=== PATIENT | female | born 1945 | race Caucasian/White ===

== ENCOUNTER → 2017-09-10 | Outpatient (CLI) | payer MEDICARE, OTHER ==
[~2017-09-10] MED LIST: ADVA250A INH; ALBU6.7H INH; ASPI81CH3 PO; ASPI81TA23 PO; DICL75 PO; GLIM2TAB PO; GLIP5 PO; HYDR-2768 PO; HYDR25TA5 PO; METF500 PO; METF500T4 PO; OXYB5TAB PO; POTA-163 PO; ROSU1TAB8 PO; ROSU20 PO
[2017-09-10 09:18] LABS: AUTOMATED NEUTROPHIL # 3.4 TH/MM3 (1.8-7.7); BASOPHIL % 0.7 % (0.0-2.0); EOSINOPHIL # 0.2 TH/MM3 (0-0.4); EOSINOPHIL % 4.4 % (0.0-4.0); HEMATOCRIT 35.9 % (35.0-46.0); HEMOGLOBIN 11.9 GM/DL (11.6-15.3); LYMPH % 26.9 % (9.0-44.0); LYMPHOCYTE # 1.5 TH/MM3 (1.0-4.8); MEAN CELL VOLUME 87.4 FL (80.0-100.0); MEAN CORPUSCULAR HEMOGLOBIN 28.9 PG (27.0-34.0); MEAN PLATELET VOLUME 6.2 FL (7.0-11.0); MONO % 7.6 % (0.0-8.0); MONOCYTE # 0.4 TH/MM3 (0-0.9); NEUT % 60.4 % (16.0-70.0); PLATELET COUNT 283 TH/MM3 (150-450); RED BLOOD COUNT 4.11 MIL/MM3 (4.00-5.30); RED CELL DISTRIBUTION WIDTH 14.7 % (11.6-17.2); WHITE BLOOD COUNT 5.6 TH/MM3 (4.0-11.0)
[2017-09-10 09:25] LABS: PROTHROMBIN TIME - PATIENT 10.5 SEC (9.8-11.6)
[2017-09-10 09:48] LABS: BACTERIA, URINE RARE /hpf; BILIRUBIN, URINE NEG (NEG); BLOOD, URINE NEG (NEG); GLUCOSE,URINE NEG (NEG); HYALINE CAST, URINE 3 /lpf (RARE); KETONE, URINE NEG (NEG); MUCUS URINE FEW /lpf (OCC); NITRITE,URINE NEG (NEG); SQUAMOUS EPITHELIAL CELL URINE 1 /hpf (0-5); URINE COLOR YELLOW (YELLW/STRAW); URINE LEUKOCYTE ESTERASE NEG (NEG)
--- NOTE | 2017-09-10 10:29 | RADRPT ---
EXAM DATE/TIME: 09/10/2017 09:53 [facility] COMPARISON: No previous studies available for comparison. INDICATIONS : Evaluate for pneumothorax, pneumonia, or other communicable disease. Pre-op knee surgery. MEDICAL HISTORY : None. SURGICAL HISTORY : None. ENCOUNTER: Initial ACUITY: 1 day PAIN SCORE: 0/10 LOCATION: Bilateral chest FINDINGS: PA and lateral views of the chest demonstrate the lungs to be symmetrically aerated without evidence of mass, infiltrate or effusion. The cardiomediastinal contours are unremarkable. Osseous structure s are intact. CONCLUSION: 1. No acute cardiopulmonary disease. Marty Cantu MD on September 10, 2017 at 10:21 Board Certified Radiologist. This report was verified electronically.
[2017-09-10 10:41] LABS: BICARBONATE 28.9 MEQ/L (21.0-32.0); CALCIUM 9.9 MG/DL (8.5-10.1); CREATININE 0.97 MG/DL (0.50-1.00)
--- NOTE | 2017-09-10 19:43 | EKG ---
Date Performed: 09/10/2017 Time Performed: 08:47:22 PTAGE: 71 years EKG: Sinus rhythm . Anterior T wave changes are nonspecific Borderline ECG PREVIOUS TRACING : 07/12/2015 11.02 Since previous tracing, no significant change noted DOCTOR: Josefina Lazar Interpretating Date/Time 09/10/2017 19:41:02
== END ==
LOC: CPRE 08:23
PROVIDERS: ATTEND Orthopaedic Surgery
DX: Z01.812 Encounter for preprocedural laboratory examination (principal); Z01.811 Encounter for preprocedural respiratory examination; Z01.810 Encounter for preprocedural cardiovascular examination; M17.12 Unilateral primary osteoarthritis, left knee; B95.2 Enterococcus as the cause of diseases classified elsewhere; R94.31 Abnormal electrocardiogram [ECG] [EKG]
CPT/HCPCS: 36415; 71046; 80048; 81001; 85025; 85610; 87077; 87086; 87186; 93005

== ENCOUNTER 2017-09-26 06:26 | Inpatient (IN) | payer MEDICARE, OTHER ==
--- NOTE | 2017-09-13 12:17 | MH ---
cc: JATIN STOLL DATE OF ADMISSION: 09/26/2017 ADMISSION DIAGNOSIS Osteoarthritis left knee, varus deformity left knee, pain left knee. HISTORY OF PRESENT ILLNESS The patient is a 71-year-old white female who has had a 2-year history of pain involving her left knee. She had experienced the onset of her symptoms initially in April of 2015, unrelated to injury or unusual activity. She had conformed to conservative management at that time but later underwent an MRI scan evaluation and subsequently diagnosed as having a medial meniscus tear of her left knee with associated chondromalacia and a knee effusion associated with a popliteal cyst. In July of 2015 the patient underwent arthroscopic surgery for which she was noted to have tolerated her operative procedure well and had an uneventful recovery thereafter. She was able to resume routine activities and was doing reasonably well until May of this past year when she fell while walking along a sidewalk, sustaining blunt trauma to the anterior aspect of her left knee. She was able to arise and ambulate thereafter and did not seek any immediate evaluation or treatment while conforming to modified activities which included ice application and taking [id number] medication for pain relief. Because of lingering symptoms she later underwent evaluation in the office in July of this past year and at that time her x-ray studies revealed obvious degenerative changes throughout the medial compartment with near [id number] apposition associated with a varus deformity of at least 5 degrees magnitude. Findings and treatment options were reviewed with the patient at that time. The pros and cons of continuing with conservative management versus operative intervention that would involve a total knee arthroplasty were outlined. Emphasis was made regarding the fact that the decision to proceed with surgery would be left entirely to the patient's discretion. The patient initially elected to continue with conservative management while trying to conform to exercise activities that she had previously been instructed following previous rehabilitation intervention. She was also taking diclofenac 75 mg for pain relief. Unfortunately, her symptoms persisted and she returned to the office in further disposition expressing her desire to proceed with a more definitive course of treatment. The involvement of total knee arthroplasty was outlined, with the patient indicating her desire to proceed accordingly given the progressive nature of her pain. In compliance with her wishes she is currently being admitted in order that the above be accomplished. PAST MEDICAL HISTORY/HOSPITALIZATIONS/SURGERIES 1. Arthroscopic surgery as described. 2. Abdominal hysterectomy. 3. Bilateral carpal tunnel release. 4. Three-level anterior cervical fusion. 5. Surgical treatment of a right ankle fracture with later removal of hardware. 6. Tonsillectomy. 7. Laparoscopic cholecystectomy. 8. The patient has also been hospitalized for medical management of anxiety. CURRENT MEDICAL ILLNESS 1. Diabetes. 2. Elevated cholesterol. 3. Hypertension. MEDICATIONS Current medications: 1. Glimepiride 2 mg at breakfast time. 2. Metformin 500 mg twice daily. The patient also adheres to a low-carbohydrate diet for her diabetes. 3. Oxybutynin 5 mg daily. 4. Rosuvastatin 20 mg daily. 5. Potassium chloride 20 mEq daily. 6. Hydrochlorothiazide 25 mg daily. 7. 81 mg aspirin tablet daily. ALLERGIES The patient describes a drug allergy to DEMEROL WHICH HAS BEEN ASSOCIATED WITH HALLUCINATIONS. Codeine has been well tolerated. REVIEW OF SYSTEMS She wears glasses. No headache or syncope. There is a history of seizure during childhood. No lingering problems thereafter. Auditory acuity is intact. No tinnitus. No bleeding gums or dysphagia. She does wear complete dentures. No sinus congestion or epistaxis. Auditory acuity intact. No tinnitus. No angina or heart disease. She is medically managed for hypertension. Her appetite is good. Bowel movements regular. No hepatitis, ulcers or hemorrhoids. She is status post cholecystectomy. No urinary tract infections in the distant past but apparently has had some issues recently. No kidney stones. History of fracture of the right ankle as described. No psychiatric illness. Her remaining review of systems is unremarkable and noncontributory. FAMILY HISTORY She had been 53 years. Her at 72 years of age with a history of prostate cancer as well as having a history of PTSD and heart disease. She has three daughters all described as being in good health. Her family history is positive for hypertension, diabetes, congestive heart failure, colon cancer and lung disease. 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 She completed a high school education. She denies active use of tobacco and ethanol. PHYSICAL EXAMINATION Height 5 feet 4 inches, weight 208 pounds. GENERAL: An alert, oriented and responsive 71-year-old white female who sits quietly upon the examination table with no apparent distress. HEENT: Pupils are equally round and reactive to light. Extraocular movements full. Sclerae clear. External nares clear. External auditory canals clear. Edentulous. Mucous membranes pink and moist. Pharynx clear. NECK: Supple. Active range of motion with no associated pain. Carotid pulse palpable bilaterally. Trachea midline. Thyroid without enlargement. LUNGS: Clear to auscultation and percussion. No CVA tenderness. No discomfort throughout the dorsal lumbar spine. HEART: Regular rhythm. No murmur or gallop. ABDOMEN: Abdomen is soft, nontender. Bowel sounds present. PELVIC: Per primary care physician. EXTREMITIES: Left knee: There is a mild fullness about the left knee consistent with redundancy of soft tissue, slight medial joint line tenderness without palpable deformity. Apprehension and compression sign negative. Limited mobility in the 110 degree range of motion with discomfort at the extreme of flexion. No associated crepitation. No collateral ligamentous laxity. Carlton test and drawer sign negative. Pivot shift and Zoe sign positive for medial compartment pain. Straight-leg raising unremarkable at 80 degrees. Satisfactory mobility of the left hip with no associated pain. Independent gait. NEUROLOGIC: Cranial nerves II-XII grossly intact. IMPRESSION Osteoarthritis of the left knee, varus deformity left knee, pain left knee. PLAN Left total knee arthroplasty. The nature of the planned surgical procedure, the potential complications and risks associated, the expectations of surgery and the consent form were thoroughly reviewed with the patient prior to her admission to the hospital. Ebony has indicated her full understanding regarding all of the above and given consent to proceed with treatment as outlined. Medical evaluation and clearance for surgery will be completed by her primary care physician, Dr. Sanches. Jtain Stoll MD NBS/TLL /11:37 AM /11:51 AM
[~2017-09-26] VITALS: Ht 162.6 cm; Wt 94.6 kg
[~2017-09-26 06:26] MED LIST changes: -ALBU6.7H INH; -ASPI81CH3 PO; -DICL75 PO; -GLIP5 PO; -HYDR-2768 PO; -METF500 PO; -ROSU20 PO
[2017-09-26] MEDS ORDERED: POVIDONE IODINE 7.5% SCRUB 118 ML BOTTLE TOPICAL SCH (07:00)
[2017-09-26] MEDS ORDERED: CHLORHEXIDINE GLUCONATE 2 % 1 PACK (2 CLOTHS) TOPICAL PRN (07:00)
[2017-09-26] MEDS ORDERED: SODIUM CHLORID 0.9% 500 ML IV PRN (07:00)
[2017-09-26] MEDS ORDERED: POVIDONE IODINE 5% (ANTISEPSIS KIT) 4 APPLICATIONS EACH NARE PRN (07:00)
[2017-09-26] MEDS ORDERED: LACTATED RINGER'S 1000 ML IV PRN (07:00)
[2017-09-26] MEDS ORDERED: METOPROLOL TARTRATE 25 MG TAB PO PRN (07:00)
[2017-09-26] MEDS ORDERED: ceFAZolin 2 GM PREMIX 50 ML IV SCH (07:00)
[2017-09-26] MEDS ORDERED: ceFAZolin INJ 1,000 MG VIAL ONE (07:58)
[2017-09-26] MEDS ORDERED: MIDAZOLAM HCL 2 MG/2 ML VIAL ONE (08:54)
[2017-09-26] MEDS ORDERED: ROPIVACAINE 0.5% PF INJ 30 ML VIAL ONE (08:55)
[2017-09-26] MEDS ORDERED: LIDOCAINE HCL 1% PF 5 ML AMPULE ONE (08:55)
[2017-09-26] MEDS ORDERED: ACETAMINOPHEN 1000 MG/100 ML 100 ML IV ONE (09:50)
[2017-09-26] MEDS ORDERED: FAMOTIDINE 20 MG/2 ML VIAL ONE (09:50)
[2017-09-26] MEDS: TRANEXAMIC ACID 1 GM PRIOR TO PROCEDURE IV SCH ×4 (09:56→13:15)
[2017-09-26] MEDS ORDERED: TRANEXAMIC ACID 1 GM POST-OP IV SCH ×2 (10:00)
[2017-09-26] MEDS ORDERED: EXPAREL PERI-ARTICULAR INJECTION (TOTAL VOL. 60 ML) P-ARTICULR SCH ×2 (10:00)
[2017-09-26] MEDS ORDERED: LIDOCAINE HCL 1% PF 5 ML SYRINGE OTHER ONE (12:00)
[2017-09-26] MEDS ORDERED: ONDANSETRON HCL 4 MG/2 ML VIAL IV ONE (12:00)
[2017-09-26] MEDS ORDERED: ROCURONIUM INJ 50 MG/5 ML SYRINGE IV PUSH ONE (12:00)
[2017-09-26] MEDS ORDERED: PROPOFOL 200 MG/20 ML AMP IV ONE (12:00)
[2017-09-26] MEDS ORDERED: LACTATED RINGER'S 1000 ML INJ 1,000 ML IV ONE (12:00)
[2017-09-26] MEDS ORDERED: DEXAMETHASONE SOD PHOS 4 MG/ML VIAL IV ONE (12:00)
[2017-09-26] MEDS ORDERED: NEOSTIGMINE 5 MG/5 ML SYRINGE IV PUSH ONE (12:00)
[2017-09-26] MEDS ORDERED: GLYCOPYRROLATE 1 MG/5 ML SYRINGE IV PUSH ONE (12:00)
[2017-09-26] MEDS ORDERED: DO NOT ADM ANY ANTICOAGULANT DRUGS PRN (12:14)
[2017-09-26] MEDS ORDERED: *morphine SULFATE 10 MG/ML PERIprocedure ONLY ONE ×3 (12:26→12:53)
[2017-09-26] MEDS ORDERED: MORPHINE SULFATE 4 MG/ML INJ ONE (12:26)
[2017-09-26] MEDS ORDERED: MISCELLANEOUS PHARMACY INFORMATION XX ONE (12:30)
[2017-09-26] MEDS ORDERED: Post-op Orders (for Pharmacy) XX ONE (12:30)
[2017-09-26] MEDS ORDERED: NALOXONE HCL 0.4 MG/ML AMP IV PUSH PRN (12:30)
[2017-09-26] MEDS ORDERED: ACETAMINOPHEN/HYDROcodone 325 MG/5 MG TAB PO PRN (12:30)
[2017-09-26] MEDS ORDERED: ONDANSETRON HCL 4 MG/2 ML VIAL IVP PRN (12:30)
[2017-09-26] MEDS ORDERED: TRANEXAMIC ACID INJ 1,000 MG in SODIUM CHLORIDE 0.9% INJ 100 ML IV SCH (12:30)
[2017-09-26] MEDS ORDERED: ACETAMINOPHEN 325 MG TAB PO PRN (12:30)
[2017-09-26] MEDS ORDERED: ZOLPIDEM TARTRATE 5 MG TAB PO PRN (12:30)
[2017-09-26] MEDS ORDERED: diphenhydrAMINE HCL 50 MG/ML VIAL IV PUSH PRN (12:30)
[2017-09-26] MEDS: DEXT 5%-NACL 0.45% 1000 ML INJ 1,000 ML IV SCH ×2 (13:00→21:40)
[2017-09-26] MEDS ORDERED: PCA - TOTAL MG DILAUDID DELIVERED PER SHIFT SCH (14:00)
--- NOTE | 2017-09-26 14:16 | RADRPT ---
EXAM DATE/TIME: 09/26/2017 12:53 [facility] COMPARISON: No previous studies available for comparison. INDICATIONS : Post op left knee surgery MEDICAL HISTORY : None. SURGICAL HISTORY : None. ENCOUNTER: Initial ACUITY: 1 day PAIN SCORE: 10/10 LOCATION: Left knee FINDINGS: AP and lateral views of the knee following arthroplasty reveals a prosthesis in anatomic alignment. F racture is not appreciated. Surgical drain is evident CONCLUSION: Status post total knee arthroplasty. Ramon Saleem MD FACR Board Certified Radiologist. This report was verified electronically.
[2017-09-26 16:00] VITALS: BP 117/74; PULSE 75; RESP 18; TEMP 96.4; O2SAT 95
--- NOTE | 2017-09-26 16:57 | PD.CONS ---
[facility] By Dr[facility] service Reason for Consult Medical management Primary Care Physician Javier Sanches DO Diagnoses: History of Present Illness Patient is a very pleasant 71-year-old female with known history of hypertension , diabetes type 2, hyperlipidemia who is admitted under orthopedic services today and underwent left total knee arthroplasty. Patient apparently has been having increasing pain on the left knee worsening over the past 6 months which prompted this admission. Patient states very good hypoglycemic awareness. States checks her blood sugars at home ranging from 120s to 160s. Lately has been using a walker to help with ambulation. Review of Systems Constitutional: DENIES: Diaphoretic episodes, Fatigue, Fever, Weight gain, Weight loss, Chills, Dizziness, Change in appetite, Night Sweats Endocrine: DENIES: Abnorml menstrual pattern, Heat/cold intolerance, Polydipsia , Polyuria, Polyphagia Eyes: DENIES: Blurred vision, Diplopia, Eye inflammation, Eye pain, Vision loss , Photosensitivity, Double Vision Ears, nose, mouth, throat: DENIES: Tinnitus, Hearing loss, Vertigo, Nasal discharge, Oral lesions, Throat pain, Hoarseness, Ear Pain, Running Nose, Epistaxis, Sinus Pain, Toothache, Odynophagia Respiratory: DENIES: Apneas, Cough, Snoring, Wheezing, Hemoptysis, Sputum production, Shortness of breath Cardiovascular: DENIES: Chest pain, Palpitations, Syncope, Dyspnea on Exertion , PND, Lower Extremity Edema, Orthopnea, Claudication Gastrointestinal: DENIES: Abdominal pain, Black stools, Bloody stools, Constipation, Diarrhea, Nausea, Vomiting, Difficulty Swallowing, Anorexia Genitourinary: DENIES: Abnormal vaginal bleeding, Dysmenorrhea, Dyspareunia, Sexual dysfunction, Urinary frequency, Urinary incontinence, Urgency, Hematuria , Dysuria, Nocturia, Vaginal discharge Musculoskeletal: COMPLAINS OF: Joint pain Integumentary: DENIES: Abnormal pigmentation, Pruritus, Rash, Nail changes, Breast masses, Breast skin changes, Nipple discharge Hematologic/lymphatic: DENIES: Bruising, Lymphadenopathy Immunologic/allergic: DENIES: Eczema, Urticaria Neurologic: DENIES: Abnormal gait, Headache, Localized weakness, Paresthesias, Seizures, Speech Problems, Tremor, Poor Balance Psychiatric: DENIES: Anxiety, Confusion, Mood changes, Depression, Hallucinations, Agitation, Suicidal Ideation, Homicidal Ideation, Delusions Past Family Social History Allergies: Coded Allergies: meperidine (Verified Allergy, Severe, Hallucinations, 09/26/17) Past Medical History Hypertension Hyperlipidemia Diabetes mellitus type 2 Overactive bladder Hyperreactive airway disease Reported Medications As outpatient Pravastatin Aspirin Potassium chloride Hydrochlorothiazide 25 mg daily Advair Metformin 500 twice a The omeprazole 20 mg daily Oxybutynin ER 24 once a day Currently in-house Xarelto Cefazolin Narco Colace Ambien Family History Noncontributory Social History Denies smoking alcohol or substance abuse Physical Exam Vital Signs Vital Signs Date Time Temp Pulse Resp B/P (MAP) Pulse Ox O2 Delivery O2 Flow Rate FiO2 09/26/17 12:18 97.8 94 20 133/71 (91) 97 Nasal Cannula 2 09/26/17 07:34 98.5 72 20 121/69 (86) 95 Physical Exam GENERAL: Awake alert oriented 3 in no apparent distress. SKIN: No rashes, ecchymoses or lesions. Cool and dry. HEAD: Atraumatic. Normocephalic. No temporal or scalp tenderness. EYES: Pupils equal round and reactive. Extraocular motions intact. No scleral icterus. No injection or drainage. ENT: Nose without bleeding, purulent drainage or septal hematoma. Throat without erythema, tonsillar hypertrophy or exudate. Uvula midline. Airway patent. NECK:No JVD or lymphadenopathy. Supple, nontender, no meningeal signs. CARDIOVASCULAR: Regular rate and rhythm without murmurs, gallops, or rubs. RESPIRATORY: Clear to auscultation. Breath sounds equal bilaterally. No wheezes , rales, or rhonchi. GASTROINTESTINAL: Abdomen soft, non-tender, nondistended.. No guarding. MUSCULOSKELETAL: Extremities without clubbing, cyanosis, or edema. No joint tenderness, effusion, or edema noted. No calf tenderness. Negative Homans sign bilaterally. Left lower extremity on CPM NEUROLOGICAL: Awake and alert. Cranial nerves II through XII intact. sensory grossly within normal limits. Five out of 5 muscle strength in all muscle groups. Normal speech. Imaging Last Impressions Knee X-Ray 09/26/17 7506 Signed Impressions: Service Date/Time: Tuesday, September 26, 2017 12:53 - CONCLUSION: Status post total knee arthroplasty. Ramon Saleem MD Assessment and Plan Assessment and Plan 71-year-old female Status post left total knee arthroplasty Orthopedic service is following PT consult. When necessary pain meds History of hypertension will continue on hydrochlorothiazide 25 mg daily. Potassium 20 mEq daily History of diabetes type 2 Continue on metformin 500 twice a day . Hold Glimepiride History of hyperreactive airway disease. Continue on Advair. Incentive spirometry Hyperlipidemia continue on pravastatin Xarelto for DVT prophylaxis mill manager consulted for discharge planning patient choice would like to go to [facility] Thank you for this consult we'll follow patient in-house with you Ita Reis MD Sep 26, 2017 16:57
[2017-09-26] MEDS: ACETAMINOPHEN/HYDROcodone 325 MG/5 MG TAB PO PRN ×2 (17:07→21:39)
[2017-09-26] MEDS: metFORMIN HCL 500 MG TAB PO SCH (18:40)
[2017-09-26 20:00] VITALS: BP 110/59; PULSE 70; RESP 17; TEMP 98.6; O2SAT 93
[2017-09-26] MEDS: BUDESONIDE-FORMOTEROL 160/4.5 MCG INHALER INH SCH (21:00)
[2017-09-26] MEDS ORDERED: NON-FORMULARY DRUG (Oxybutynin ER 24 HR 5 MG) PO SCH (21:00)
[2017-09-26] MEDS ORDERED: NON-FORMULARY DRUG (Metformin ER 500 MG) PO SCH (21:00)
[2017-09-26] MEDS ORDERED: NON-FORMULARY DRUG (Rosuvastatin 20 MG) PO SCH (21:00)
[2017-09-26] MEDS ORDERED: NON-FORMULARY DRUG (Fluticasone-Salmeterol Inh (Advair Diskus Inh) 1 PUFF) INH SCH (21:00)
[2017-09-26] MEDS: TOLTERODINE TARTRATE 2 MG CAP LA PO SCH (21:41)
[2017-09-26] MEDS: ATORVASTATIN 40 MG TAB PO SCH (21:42)
[2017-09-27] VITALS: BP 104/59; PULSE 90; RESP 16; TEMP 97; O2SAT 96
[2017-09-27] MEDS: DOCUSATE SODIUM 100 MG CAP PO PRN (03:33)
[2017-09-27] MEDS: ACETAMINOPHEN/HYDROcodone 325 MG/5 MG TAB PO PRN ×5 (03:33→22:59)
[2017-09-27] MEDS: DEXT 5%-NACL 0.45% 1000 ML INJ 1,000 ML IV SCH ×3 (03:34→21:00)
[2017-09-27 04:00] VITALS: BP 110/60; PULSE 86; RESP 15; TEMP 97.4; O2SAT 95
[2017-09-27] MEDS ORDERED: ASPI-183 PO (06:24)
[2017-09-27] MEDS ORDERED: HYDR-3516 PO (06:24)
--- NOTE | 2017-09-27 06:26 | HHI.FF ---
Face to Face Verification Diagnosis: (1) DJD (degenerative joint disease) of knee Physical Therapy Gait training Knee: Total knee, Protocol: Left, Full weight bearing Left LE Weight Bearing: WB as tolerated Left LE Range of Motion: Active ROM Nursing Dressing Changes: Daily dressing change I have seen patient Ebony Manjarrez on 09/27/17. My clinical findings support the need for the requested home health care services because: Limited ability to care for self High risk of falls I certify that my clinical findings support that this patient is homebound because: Post-op weakness Unsteady gait/balance Unsafe to leave home unassisted Max Stoll MD Sep 27, 2017 06:26
[2017-09-27] MEDS ORDERED: WALKER WHEELS/F1 MIS (06:28)
[2017-09-27 06:34] LABS: HEMATOCRIT 27.1 % (35.0-46.0); HEMOGLOBIN 9.3 GM/DL (11.6-15.3)
[2017-09-27 06:58] LABS: BICARBONATE 26.4 MEQ/L (21.0-32.0); CALCIUM 8.1 MG/DL (8.5-10.1); CREATININE 1.04 MG/DL (0.50-1.00)
[2017-09-27 08:00] VITALS: BP 101/57; PULSE 87; RESP 18; TEMP 98.2; O2SAT 96
[2017-09-27] MEDS: HYDROCHLOROTHIAZIDE 25 MG TAB PO SCH (08:00)
[2017-09-27] MEDS: POTASSIUM CHLORIDE 20 MEQ CONTROLLED RELEASE TAB PO SCH (08:00)
[2017-09-27] MEDS: metFORMIN HCL 500 MG TAB PO SCH ×2 (08:00→18:30)
[2017-09-27] MEDS: BUDESONIDE-FORMOTEROL 160/4.5 MCG INHALER INH SCH ×2 (08:00→21:00)
--- NOTE | 2017-09-27 08:36 | MP ---
cc: JATIN GUAN DATE OF SURGERY 09/26/2017 PREOPERATIVE DIAGNOSIS 1. Osteoarthritis of the left knee. 2. Varus deformity, left knee. 3. Pain of the left knee. POSTOPERATIVE DIAGNOSIS 1. Osteoarthritis of the left knee. 2. Varus deformity, left knee. 3. Pain of the left knee. PROCEDURE Left total knee arthroplasty. SURGEON Jerman. ANESTHESIA General endotracheal. INDICATIONS A 71-year-old white female with a two-year history of left knee pain. The onset of her symptoms was unrelated to injury or unusual activity. She had conformed to conservative management and later underwent an MRI scan examination being diagnosed as having a medial meniscus tear of her left knee with associated chondromalacia and knee effusion associated with a popliteal cyst. In July 2015 the patient underwent arthroscopic surgery and at that time she was noted to tolerate her operative procedure well with an uneventful recovery. She was able to resume routine activities and was doing reasonably well until May of this past year when she fell while walking along a sidewalk sustaining blunt trauma to the anterior aspect of her left knee. She was able to arise and ambulate thereafter and did not seek any immediate evaluation or treatment while conforming to modified activities including ice application and taking [id number] medication for pain relief. Her symptoms lingered thereafter and she later underwent orthopedic evaluation in July of this past year. At that time her x-ray studies revealed obvious degenerative changes throughout the medial compartment with near [id number] apposition associated with a varus deformity of at least 5 degrees magnitude. Findings and treatment options were reviewed with the patient at that time. The pros and cons of continuing with conservative management versus operative intervention involving total knee arthroplasty were outlined. Emphasis was made regarding the fact that the decision to proceed with surgery would be left entirely to the patient's discretion. The patient initially elected to continue with conservative management while trying to conform to an exercise program as had been previously been instructed following rehabilitation intervention. She was taking diclofenac 75 mg for pain management. Unfortunately her symptoms persisted and she returned to the office for further disposition expressing her desire to proceed with a more definitive course of treatment. Once again the involvement of total knee arthroplasty was outlined for which the patient indicated full understanding and expressed her desire to proceed accordingly. In compliance with her wishes she was scheduled for admission at this time in order that the above be accomplished. FORMAT Following induction of satisfactory general anesthesia by endotracheal intubation as completed per the Department of Anesthesia, a tourniquet was established around the proximal portion of the left lower extremity. The extremity proper was isolated with a U-drape thereafter being prepped with Betadine solution and draped into a sterile field in the routine manner. Prior to initiation of the actual procedure the standard timeout protocol was completed; all parameters were appropriately addressed and confirmed by operating room personnel. The extremity was elevated for approximately one minute and the tourniquet thus inflated to 250 mmHg pressure. A sharp skin incision was initiated midline over the anterior aspect of the knee and developed through underlying subcutaneous tissue with hemostasis maintained by electrocautery. By deepening dissection the anterior capsule was exposed, a medial capsulotomy completed and the patella subluxed in a lateral orientation. Examination of the joint space revealed severe degenerative changes of a tricompartmental nature but being most pronounced throughout the medial compartment where there was significant erosion of articular cartilage and underlying subchondral bone exposed. The articular surface of the patella was resected with a power saw. The three-hole guide was utilized for establishing post holes. Medial and lateral meniscus structures as well as anterior cruciate ligament were sharply excised. A centering hole was placed in the distal aspect of the femur allowing positioning of the intramedullary guide. The distal femoral cutting jig was attached and the distal femur resected. AP measurement noted 70 mm sizing to be appropriate. The matching cutting block was positioned, anterior, posterior and chamfer cuts were completed. The tibial plateau was thereafter subluxed in an anterior orientation allowing positioning of the extramedullary guide. The tibial plateau was resected and measured with 75 mm sizing determined to be satisfactory. A trial reduction followed utilizing a 70 mm anatomic femoral component, a 75 mm tibial base with a 10 mm bearing insert. The knee was readily brought to full extension. There was no laxity to varus, valgus stress at both 0 and 90 degrees flexed posture. Orientation was confirmed as appropriate with measurement of the pelvic guide through the mechanical axis of the knee. A trial reduction followed utilizing a 31 mm standard three-post patellar button. Once again good tracking was noted with no tendency toward subluxation. All trial components being removed the remaining portion of the proximal tibia was prepared for insertion of the permanent component. The joint space was thoroughly lavaged with pulsating antibiotic solution, hemostasis maintained by electrocautery. An autogenous bone plug was inserted into the distal femoral guide hole and thereafter preparation of Palacos bone cement was utilized in inserting knee components in a sequential fashion which included a 75 mm fixed cruciate tibial plate to which a 10 mm Vanguard tibial bearing insert was secured with locking barajas. The 70 mm vanguard femoral component was firmly seated onto the distal femur. Excess cement being removed the knee was brought to full extension and thereafter the 31 mm three-post standard patellar button was attached and maintained in place with patellar clamp while cement hardening was completed. Final range of motion assessment noted good tracking and stability throughout the knee. Irrigation was repeated with hemostasis maintained. Autovac drain tubes were inserted through superior stab wounds. The capsule was repaired with 0 Vicryl suture. The remaining portion of the wound was closed in layers in the routine manner with skin margins being re-approximated with a running subcuticular 3-0 Vicryl suture over which Steri-Strips were applied. Xeroform gauze and a bulky dry sterile dressing were placed. The tourniquet was deflated after 60 minutes of tourniquet time, the extremity being supported in a canvas knee splint. Anesthesia was discontinued and the patient thus transferred to a hospital bed and returned to the recovery room in satisfactory condition having tolerated her operative procedure well. Estimated blood loss was approximately 150 cc as determined per Anesthesia. All implants were of the [employer] crop ranch hand. MD ELEANOR Bangura/CAREY /12:09 PM /8:09 AM
[2017-09-27] MEDS ORDERED: NON-FORMULARY DRUG (Metformin ER 500 MG) PO SCH (09:00)
[2017-09-27] MEDS: RIVAROXABAN 10 MG TAB PO SCH (10:21)
[2017-09-27 12:00] VITALS: BP 116/53; PULSE 79; RESP 18; TEMP 98.4; O2SAT 95
--- NOTE | 2017-09-27 12:52 | HHI.PR ---
Subjective Remarks pain controlled very motivated with therapy Objective Vitals Vital Signs Date Time Temp Pulse Resp B/P (MAP) Pulse Ox O2 Delivery O2 Flow Rate FiO2 09/27/17 12:00 98.4 79 18 116/53 (74) 95 09/27/17 08:00 98.2 87 18 101/57 (72) 96 09/27/17 04:00 97.4 86 15 110/60 (77) 95 09/27/17 00:00 97.0 90 16 104/59 (74) 96 09/26/17 20:00 98.6 70 17 110/59 (76) 93 09/26/17 16:00 96.4 75 18 117/74 (88) 95 09/26/17 15:45 97.9 77 20 105/57 (73) 96 Nasal Cannula 2 09/26/17 14:15 85 20 124/59 (80) 96 Nasal Cannula 2 09/26/17 13:15 80 20 141/60 (87) 96 Nasal Cannula 2 09/26/17 13:00 79 20 139/81 (100) 96 Nasal Cannula 2 I/O 09/26/17 09/26/17 09/26/17 09/27/17 09/27/17 09/27/17 07:00 15:00 23:00 07:00 15:00 23:00 Intake Total 1100 ml 100 ml 800 ml Output Total 150 ml 40 ml 20 ml Balance 950 ml 60 ml 780 ml Intake Oral 800 ml IV Total 1100 ml 100 ml Output Drainage Total 40 ml 20 ml Estimated Blood Loss 150 ml # Voids 1 Result Diagram: 09/27/17 0539 09/27/17 0539 Imaging Last Impressions Knee X-Ray 09/26/17 1219 Signed Impressions: Service Date/Time: Tuesday, September 26, 2017 12:53 - CONCLUSION: Status post total knee arthroplasty. Ramon Saleem MD Objective Remarks awake and alert, orietented x 3 anicteric lungs- clear regular rhytm Left LE- post op dressing in place no calf swelling or tenderness Procedures left total knee arthroplasty 09/26 A/P Assessment and Plan 71-year-old female Status post left total knee arthroplasty- 09/26 Orthopedic service is following PT ff When necessary pain meds History of hypertension will continue on hydrochlorothiazide 25 mg daily. Potassium 20 mEq daily History of diabetes type 2 Continue on metformin 500 twice a day . restart glimepiride History of hyperreactive airway disease. Continue on Advair. Incentive spirometry Hyperlipidemia continue on pravastatin Xarelto for DVT prophylaxis discharge planning patient choice would like to go to [facility] Ita Robbins MD Sep 27, 2017 12:52
[2017-09-27 16:30] VITALS: BP 121/61; PULSE 79; RESP 13; RESP 16; TEMP 98.2; O2SAT 95
[2017-09-27 20:00] VITALS: BP 123/62; PULSE 83; RESP 16; TEMP 97.3; O2SAT 99
[2017-09-27] MEDS: ATORVASTATIN 40 MG TAB PO SCH (23:00)
[2017-09-27] MEDS: TOLTERODINE TARTRATE 2 MG CAP LA PO SCH (23:00)
[2017-09-28] VITALS: BP_SYST 121; BP_SYST 128; BP_DIAS 69; BP_DIAS 93; PULSE 103; PULSE 80; RESP 15; TEMP 99.1; O2SAT 95; O2SAT 97
[2017-09-28] MEDS: DEXT 5%-NACL 0.45% 1000 ML INJ 1,000 ML IV SCH ×3 (05:00→20:13)
[2017-09-28 08:00] VITALS: BP 126/74; PULSE 88; RESP 19; TEMP 98.4; O2SAT 96
--- NOTE | 2017-09-28 08:13 | HHI.PR ---
Subjective Remarks was already up this am and ambulated- doing well pain controlled voiding spontaneously + lots of flatus Objective Vitals Vital Signs Date Time Temp Pulse Resp B/P (MAP) Pulse Ox O2 Delivery O2 Flow Rate FiO2 09/28/17 00:00 99.1 80 15 121/69 (86) 95 09/27/17 20:00 97.3 83 16 123/62 (82) 99 09/27/17 16:30 98.2 79 16 121/61 (81) 95 09/27/17 12:00 98.4 79 18 116/53 (74) 95 I/O 09/27/17 09/27/17 09/27/17 09/28/17 09/28/17 09/28/17 07:00 15:00 23:00 07:00 15:00 23:00 Intake Total 800 ml 720 ml 600 ml 200 ml Output Total 20 ml 100 ml Balance 780 ml 620 ml 600 ml 200 ml Intake Oral 800 ml 720 ml 600 ml 200 ml Output Drainage Total 20 ml 100 ml # Voids 1 5 3 1 # Bowel Movements 0 Result Diagram: 09/27/17 0539 09/27/17 0539 Imaging Last Impressions Knee X-Ray 09/26/17 1219 Signed Impressions: Service Date/Time: Tuesday, September 26, 2017 12:53 - CONCLUSION: Status post total knee arthroplasty. Ramon Saleem MD Objective Remarks awake and alert, oriented x 3 anicteric lungs- clear regular rhythm Left LE- post op dressing in place, hemovac in place no calf swelling or tenderness Procedures left total knee arthroplasty 09/26 A/P Assessment and Plan 71-year-old female Status post left total knee arthroplasty- 09/26 Orthopedic service is following PT ff When necessary pain meds History of hypertension will continue on hydrochlorothiazide 25 mg daily. Potassium 20 mEq daily History of diabetes type 2 Continue on metformin 500 twice a day/ glimepiride History of hyperreactive airway disease. Continue on Advair. Incentive spirometry Hyperlipidemia continue on pravastatin Xarelto for DVT prophylaxis discharge planning patient choice would like to go to [facility]- tomorrow T Ita Reis MD Sep 28, 2017 08:13
[2017-09-28] MEDS: metFORMIN HCL 500 MG TAB PO SCH ×2 (08:34→16:34)
[2017-09-28] MEDS: GLIMEPIRIDE 2 MG TAB PO SCH (08:34)
[2017-09-28] MEDS: HYDROCHLOROTHIAZIDE 25 MG TAB PO SCH (08:34)
[2017-09-28] MEDS: POTASSIUM CHLORIDE 20 MEQ CONTROLLED RELEASE TAB PO SCH (08:35)
[2017-09-28] MEDS: BUDESONIDE-FORMOTEROL 160/4.5 MCG INHALER INH SCH ×2 (09:00→20:13)
[2017-09-28 12:00] VITALS: BP 144/61; PULSE 84; RESP 16; TEMP 99; O2SAT 99
[2017-09-28] MEDS: RIVAROXABAN 10 MG TAB PO SCH (12:25)
[2017-09-28] MEDS: ACETAMINOPHEN/HYDROcodone 325 MG/5 MG TAB PO PRN ×3 (12:25→22:49)
[2017-09-28 16:00] VITALS: BP 122/57; PULSE 88; RESP 18; TEMP 98.4; O2SAT 95
[2017-09-28 20:00] VITALS: BP 125/62; PULSE 90; RESP 17; TEMP 98.6; O2SAT 97
[2017-09-28] MEDS: TOLTERODINE TARTRATE 2 MG CAP LA PO SCH (20:13)
[2017-09-28] MEDS: ATORVASTATIN 40 MG TAB PO SCH (20:13)
[2017-09-28 23:30] VITALS: BP 121/75; PULSE 85; RESP 18; TEMP 99; O2SAT 96
[2017-09-29] MEDS: DOCUSATE SODIUM 100 MG CAP PO PRN (02:39)
[2017-09-29] MEDS: ACETAMINOPHEN/HYDROcodone 325 MG/5 MG TAB PO PRN ×4 (02:44→15:13)
[2017-09-29] MEDS ORDERED: LACTULOSE SYRUP 20 GM/30 ML CUP PO PRN (02:45)
[2017-09-29] MEDS ORDERED: MAGNESIUM HYDROXIDE SUSP 30 ML CUP PO ONE (02:45)
[2017-09-29] MEDS ORDERED: DOCUSATE SODIUM 50 MG/SENNA 8.6 MG TAB PO ONE (02:45)
[2017-09-29] MEDS ORDERED: BISACODYL 10 MG SUPP RECTAL PRN (02:45)
[2017-09-29] MEDS: DEXT 5%-NACL 0.45% 1000 ML INJ 1,000 ML IV SCH ×2 (06:30→11:38)
[2017-09-29 08:00] VITALS: BP 125/59; PULSE 78; RESP 17; TEMP 97.4; O2SAT 95
--- NOTE | 2017-09-29 08:51 | HHI.PR ---
Subjective Remarks looking forward to going to rehab no pain complains no BM yet but lots of flatus Objective Vitals Vital Signs Date Time Temp Pulse Resp B/P (MAP) Pulse Ox O2 Delivery O2 Flow Rate FiO2 09/28/17 23:30 99.0 85 18 121/75 (90) 96 09/28/17 20:00 98.6 90 17 125/62 (83) 97 09/28/17 16:00 98.4 88 18 122/57 (78) 95 09/28/17 12:00 99.0 84 16 144/61 (88) 99 I/O 09/28/17 09/28/17 09/28/17 09/29/17 09/29/17 09/29/17 07:00 15:00 23:00 07:00 15:00 23:00 Intake Total 200 ml 960 ml 360 ml Output Total 20 ml Balance 180 ml 960 ml 360 ml Intake Oral 200 ml 960 ml 360 ml Output Drainage Total 20 ml # Voids 1 5 2 # Bowel Movements 0 0 Result Diagram: 09/27/17 0539 09/27/17 0539 Imaging Last Impressions Knee X-Ray 09/26/17 1219 Signed Impressions: Service Date/Time: Tuesday, September 26, 2017 12:53 - CONCLUSION: Status post total knee arthroplasty. Ramon Saleem MD Objective Remarks awake and alert, oriented x 3 anicteric lungs- clear regular rhythm Left LE- post op dressing in place no calf swelling or tenderness Procedures left total knee arthroplasty 09/26 A/P Assessment and Plan 71-year-old female Status post left total knee arthroplasty- 09/26 Orthopedic service is following PT ff, prn pain meds History of hypertension will continue on hydrochlorothiazide 25 mg daily. Potassium 20 mEq daily History of diabetes type 2 Continue on metformin 500 twice a day/ glimepiride daily History of hyperreactive airway disease. Continue on Advair. Incentive spirometry Hyperlipidemia continue on pravastatin Xarelto for DVT prophylaxis discharge planning - [facility]-today- T Ita Reis MD Sep 29, 2017 08:51
[2017-09-29] MEDS ORDERED: MAGNESIUM HYDROXIDE SUSP 30 ML CUP PO SCH (09:00)
[2017-09-29] MEDS: BUDESONIDE-FORMOTEROL 160/4.5 MCG INHALER INH SCH (09:00)
[2017-09-29] MEDS ORDERED: DOCUSATE SODIUM 50 MG/SENNA 8.6 MG TAB PO SCH (09:00)
[2017-09-29] MEDS: POTASSIUM CHLORIDE 20 MEQ CONTROLLED RELEASE TAB PO SCH (09:00)
[2017-09-29] MEDS: metFORMIN HCL 500 MG TAB PO SCH ×2 (09:10→16:28)
[2017-09-29] MEDS: HYDROCHLOROTHIAZIDE 25 MG TAB PO SCH (09:11)
[2017-09-29] MEDS: GLIMEPIRIDE 2 MG TAB PO SCH (09:11)
[2017-09-29] MEDS: RIVAROXABAN 10 MG TAB PO SCH (11:42)
[2017-09-29 12:00] VITALS: BP 149/70; PULSE 76; RESP 17; TEMP 98.6; O2SAT 95
[2017-09-29 16:00] VITALS: BP 148/63; PULSE 81; RESP 17; TEMP 98.1; O2SAT 95
--- NOTE | 2017-10-02 14:05 | MD ---
cc: JATIN GUAN, ADMISSION DATE: 09/26/2017 DISCHARGE DATE: 09/29/2017 ADMISSION DIAGNOSIS Osteoarthritis of the left knee, varus deformity left knee and pain of the left knee DISCHARGE DIAGNOSIS A history of a 71-year-old white female with a 2-year history of left knee pain as related to osteoarthritis. She had undergone previous evaluation and treatment which had included arthroscopic surgery for history of medial meniscus tear with associated chondromalacia. The patient had an uneventful recovery at that time and initially was able to resume routine activities but thereafter began to note progressive pain about her left knee that became increasingly more symptomatic with the passage of time. She had continued to conform to conservative modalities throughout this interval of time which included use of anti-inflammatory medication and conforming to exercise activities and has previously been instructed. She underwent a more recent office evaluation with the undersigned physician in July of this past year and at that time x-rays revealed obvious degenerative changes throughout the medial compartment with [id number] apposition and a varus deformity of at least 5 degrees magnitude. Findings and treatment options were reviewed with the patient at that time the pros and cons of undergoing a repeat arthroscopic procedure versus operative intervention involving total knee arthroplasty were outlined in detail. Emphasis was made regarding the fact that the decision to proceed with surgery would be left entirely to the patient's discretion. The patient initially elected to continue with conservative management. She was taken diclofenac 75 mg twice daily but unfortunately her symptoms persisted for which she returned to the office expressing her desire to proceed with a more definitive course of treatment once again the involvement of total knee arthroplasty was outlined for which the patient indicated her full understanding and expressed her desire to proceed accordingly in compliance with her wishes she was scheduled for admission at this time in order that the above be accomplished. PHYSICAL EXAMINATION: for physical examination at the time admission revealed mild fullness about the left knee that was consistent with redundancy of soft tissue medial joint line tenderness without palpable deformity. Apprehension compression sign were negative. There was limited mobility in the 110 degrees range of flexion with pain at the extreme of motion. No crepitation. No collateral ligamentous laxity. Carlton test and drawer sign negative. Pivot shift and Zoe sign positive for medial compartment pain. Straight-leg raising unremarkable at 80 degrees satisfactory mobility of the left hip with no associated pain. Independent gait. HOSPITAL COURSE Prior to admission to the hospital the patient had undergone medical evaluation and clearance for surgery as completed by her primary care physician Dr. Sanches. She was taken to the operating room on September 26, 2017 and on that date underwent a left total knee arthroplasty completed in an uncomplicated manner. The patient was noted to have tolerated her operative procedure well with postoperative course was stable thereafter. Hemoglobin/hematocrit assessment postoperatively was 9.3 and 27.1 respectively. The patient was progressively mobilized under guidance of physical therapy being permitted weightbearing to tolerance about the left lower extremity. Follow up examination of her surgical wound noted to be intact healing favorably no evidence of infection. Medical followup per the hospitalist service. DVT prophylaxis initiated. director of therapy services consulted to assist with discharge planning. The patient had indicated her desire to be transferred to a rehab facility continue with her mobilization process. Plans were finalized in this regard and pending medical clearance she was scheduled for discharge on the third postoperative day at which time she was making steady progress with regards to her rehab program. She was scheduled be seen in office followup in approximately 4 weeks. Her condition at the time of discharge stable. Prognosis favorable. MEDICATIONS discharge medications included 1. Hydrocodone 12/20/2024 #60. 2. Aspirin 325 mg 1 tablet twice daily for 3 weeks #40. MD ELEANOR Bangura/belen /6:22 AM /12:49 PM
== END 2017-09-29 19:07 | DRG 470 ==
LOC: HSDI 06:26 → N06B 16:17
PROVIDERS: ADMIT Orthopaedic Surgery; ATTEND Orthopaedic Surgery
PROC: 3E0T3BZ Introduction of Anesthetic Agent into Peripheral Nerves and Plexi, Percutaneous Approach (ICD-10-PCS; 2017-09-26)
PROC: 0SRD0J9 Replacement of Left Knee Joint with Synthetic Substitute, Cemented, Open Approach (ICD-10-PCS; principal; 2017-09-26 09:50)
DX: M17.12 Unilateral primary osteoarthritis, left knee (principal); E11.9 Type 2 diabetes mellitus without complications; I10 Essential (primary) hypertension; M21.162 Varus deformity, not elsewhere classified, left knee; K21.9 Gastro-esophageal reflux disease without esophagitis; E66.9 Obesity, unspecified; E78.5 Hyperlipidemia, unspecified; N32.81 Overactive bladder; Z68.35 Body mass index [BMI] 35.0-35.9, adult; Z79.84 Long term (current) use of oral hypoglycemic drugs; Z88.5 Allergy status to narcotic agent
CPT/HCPCS: 73560; 80048; 82948; 85014; 85018; 86850; 86900; 86901; 88300; 88305; 94150; C1776; C9290; J0131; J0690; J1100; J2250; J2270; J2405; J2710; J2795; J3010; J7120; L1830